=== PATIENT | female | born 1955 | race Caucasian/White ===

== ENCOUNTER → 2017-11-05 | Outpatient (CLI) | payer OTHER ==
[~2017-11-05] MED LIST: GADOBUTROL 7.5 MMOL/7.5 ML PFS ONE
== END | disposition home or self-care (01) ==
LOC: RAD 08:16
PROVIDERS: ATTEND Family Medicine
DX: D25.9 Leiomyoma of uterus, unspecified (principal); R19.09 Other intra-abdominal and pelvic swelling, mass and lump
CPT/HCPCS: 72197; A9585

== ENCOUNTER 2018-02-15 08:50 | Inpatient (IN) | payer OTHER ==
[2018-02-12 10:03] LABS: BASOPHILS # (AUTO) 0.02 x10^3/uL (0-0.1); BASOPHILS % (AUTO) 1 % (0-1); EOSINOPHILS # (AUTO) 0.07 x10^3/uL (0-0.4); EOSINOPHILS % (AUTO) 1 % (1-7); LYMPHOCYTES # (AUTO) 1.37 x10^3/uL (1-3.4); LYMPHOCYTES % (AUTO) 27 % (22-44); MD NO; MEAN CORPUSCULAR HEMOGLOBIN 30.4 pg (27.0-34.8); MEAN CORPUSCULAR HGB CONC 33.6 g/dL (32.4-35.8); MEAN CORPUSCULAR VOLUME 90.3 fL (80-100); MEAN PLATELET VOLUME 8.5 fL (7.4-10.4); MONOCYTES # (AUTO) 0.46 x10^3/uL (0.2-0.8); MONOCYTES % (AUTO) 9 % (2-9); NEUTROPHILS # (AUTO) 3.18 x10^3/uL (1.8-6.8); NEUTROPHILS % (AUTO) 62 % (42-75); PLATELET COUNT 224 x10^3/uL (130-400); RED BLOOD COUNT 5.18 x10^6/uL (3.82-5.3)
[2018-02-12 10:15] LABS: ALBUMIN 4.2 g/dL (3.4-5.0); ANION GAP 8 mmol/L (5-15); CALCIUM 9.3 mg/dL (8.5-10.1); CHLORIDE 101 mmol/L (98-107)
[2018-02-12 10:18] LABS: ALANINE AMINOTRANSFERASE 21 U/L (12-78); ALKALINE PHOSPHATASE 62 U/L (45-117); BILIRUBIN,TOTAL 1.1 mg/dL (0.2-1.0); CREATININE 0.99 mg/dL (0.55-1.02); TOTAL PROTEIN 7.8 g/dL (6.4-8.2)
[2018-02-12 10:20] LABS: INTERNATIONAL NORMALIZED RATIO 1.04 (0.93-1.1); PROTHROMBIN TIME 10.7 Seconds (9.6-11.5)
[~2018-02-15] VITALS: Ht 172.7 cm; Wt 83.9 kg
[~2018-02-15 08:50] MED LIST changes: -GADOBUTROL 7.5 MMOL/7.5 ML PFS ONE; +ROSU20TA PO; +VALS1TAB26 PO
[2018-02-22] MEDS ORDERED: OxyconTIN ER 20 MG TAB.ER PO ONE (14:30)
[2018-02-22] MEDS ORDERED: SCOPOLAMINE PATCH, 1.5MG PATCH.TD72 TD ONE (14:30)
[2018-02-22] MEDS ORDERED: ACETAMINOPHEN 500 MG TABLET PO ONE (14:30)
[2018-02-22] MEDS ORDERED: ONDANSETRON ODT 8 MG PO ONE (14:30)
[2018-02-22] MEDS ORDERED: GABAPENTIN 300 MG CAPSULE PO ONE (14:30)
[2018-02-22] MEDS: LACTATED RINGERS 1,000 ML IV SCH ×2 (14:59→17:13)
[2018-02-22] MEDS ORDERED: FENTANYL PF 250 MCG/5ML ONE (19:56)
[2018-02-22] MEDS ORDERED: MIDAZOLAM 1 MG/ML, 2ML ONE (19:56)
[2018-02-22] MEDS ORDERED: PHENYLEPHRINE 10 MG/ML ONE (19:58)
[2018-02-22] MEDS ORDERED: OXYcodone 5 MG/5 ML ORAL.SOL UDC PO PRN (20:30)
[2018-02-22] MEDS ORDERED: hydrALAzine 20 MG/ML, 1ML IV PRN (20:30)
[2018-02-22] MEDS ORDERED: morphine SULFATE 10 MG/ML, 1ML IV PRN (20:30)
[2018-02-22] MEDS ORDERED: MEPERIDINE/PF 25MG/0.5ML IVPush PRN (20:30)
[2018-02-22] MEDS ORDERED: LORazepam 2 MG/ML, 1ML IVPush PRN (20:30)
[2018-02-22] MEDS ORDERED: LABETALOL 5MG/ML, 20ML IV PRN (20:30)
[2018-02-22] MEDS ORDERED: PROMETHAZINE 25 MG/ML, 1ML IV PRN (20:30)
[2018-02-22] MEDS ORDERED: GLYCOPYRROLATE 0.4 MG/2 ML, 2ML ONE (21:11)
[2018-02-22] MEDS ORDERED: DEXAMETHASONE 4 MG/ML, 1ML ONE (21:13)
[2018-02-22] MEDS ORDERED: ROCURONIUM 10MG/ML,5ML ONE (21:13)
[2018-02-22] MEDS ORDERED: PROPOFOL 10 MG/ML, 20ML ONE (21:13)
[2018-02-22] MEDS ORDERED: CEFOTETAN PMX 1GM/50ML 100 ML ONE (21:13)
[2018-02-22] MEDS: FENTANYL PF 100 MCG/2ML IV PRN ×2 (21:45→22:09)
[2018-02-22] MEDS ORDERED: FENTANYL PF 100 MCG/2ML ONE (21:47)
[2018-02-22] MEDS ORDERED: OXYcodone 5 MG/5 ML ORAL.SOL UDC ONE (21:47)
[2018-02-22] MEDS: D5%-0.45NACL+KCL 20MEQ 1,000 ML IV SCH (22:00)
[2018-02-22] MEDS ORDERED: ONDANSETRON 2MG/ML, 2ML IVPush PRN (22:00)
[2018-02-23 00:40] VITALS: BP 112/57
[2018-02-23] MEDS: OXYcodone/APAP 5/325MG TABLET PO PRN ×2 (03:22→11:43)
[2018-02-23 04:18] VITALS: BP 103/61
[2018-02-23] MEDS: D5%-0.45NACL+KCL 20MEQ 1,000 ML IV SCH (06:00)
[2018-02-23 07:48] VITALS: BP 98/66
[2018-02-23] MEDS ORDERED: morphine SULFATE 10 MG/ML, 1ML IV PRN (08:30)
[2018-02-23] MEDS ORDERED: SODIUM CHLORIDE 0.9% 1,000 ML IV PRN (09:00)
[2018-02-23] MEDS ORDERED: METOCLOPRAMIDE 5 MG/ML, 2ML IV PRN (09:00)
[2018-02-23] MEDS ORDERED: METOCLOPRAMIDE 10MG TABLET PO PRN (09:00)
[2018-02-23 09:08] LABS: BASOPHILS # (AUTO) 0.01 x10^3/uL (0-0.1); BASOPHILS % (AUTO) 0 % (0-1); EOSINOPHILS % (AUTO) 0 % (1-7); LYMPHOCYTES # (AUTO) 0.52 x10^3/uL (1-3.4); LYMPHOCYTES % (AUTO) 6 % (22-44); MD NO; MEAN CORPUSCULAR HEMOGLOBIN 30.4 pg (27.0-34.8); MEAN CORPUSCULAR HGB CONC 33.8 g/dL (32.4-35.8); MEAN CORPUSCULAR VOLUME 89.8 fL (80-100); MEAN PLATELET VOLUME 9.3 fL (7.4-10.4); MONOCYTES # (AUTO) 0.57 x10^3/uL (0.2-0.8); MONOCYTES % (AUTO) 7 % (2-9); NEUTROPHILS # (AUTO) 7.07 x10^3/uL (1.8-6.8); NEUTROPHILS % (AUTO) 87 % (42-75); PLATELET COUNT 222 x10^3/uL (130-400); RED BLOOD COUNT 4.53 x10^6/uL (3.82-5.3); RED CELL DISTRIBUTION WIDTH 12.7 % (9.6-15.2)
[2018-02-23 09:17] LABS: ANION GAP 8 mmol/L (5-15); CALCIUM 8.3 mg/dL (8.5-10.1); CHLORIDE 101 mmol/L (98-107)
[2018-02-23 09:18] LABS: CREATININE 1.29 mg/dL (0.55-1.02)
[2018-02-23 13:25] VITALS: BP 94/57
[2018-02-23 20:00] VITALS: BP 91/58
[2018-02-23] MEDS: KETOROLAC 30 MG/1 ML IVPush PRN (22:01)
[2018-02-24 02:54] VITALS: BP 81/54
[2018-02-24] MEDS: KETOROLAC 30 MG/1 ML IVPush PRN ×4 (04:15→23:01)
[2018-02-24 05:32] LABS: ANION GAP 7 mmol/L (5-15); CALCIUM 8.1 mg/dL (8.5-10.1); CHLORIDE 105 mmol/L (98-107)
[2018-02-24 05:34] LABS: CREATININE 0.97 mg/dL (0.55-1.02)
[2018-02-24 07:50] VITALS: BP 114/65
[2018-02-24] MEDS: OXYcodone/APAP 5/325MG TABLET PO PRN ×3 (09:28→21:36)
[2018-02-24] MEDS: ONDANSETRON 4 MG TABLET PO PRN ×3 (09:29→21:36)
[2018-02-24 12:48] VITALS: BP 101/57
[2018-02-24 20:13] VITALS: BP 101/55
[2018-02-25 03:27] VITALS: BP 102/71
[2018-02-25] MEDS: ONDANSETRON 4 MG TABLET PO PRN ×2 (03:31→09:35)
[2018-02-25] MEDS: OXYcodone/APAP 5/325MG TABLET PO PRN ×2 (03:32→09:34)
[2018-02-25] MEDS: KETOROLAC 30 MG/1 ML IVPush PRN (05:20)
[2018-02-25 08:02] VITALS: BP 94/59
[2018-02-25 12:41] VITALS: BP 112/74
[2018-02-25] MEDS ORDERED: ONDA4TAB7 PO (13:15)
[2018-02-25] MEDS ORDERED: OXYC-302 PO (13:38)
== END 2018-02-25 14:00 | disposition home or self-care (01) | DRG 742 ==
LOC: ORIP 02-22 13:55 → 4NOR 02-22 22:40 → DCLOUNGE 02-25 14:00
PROVIDERS: ADMIT Specialist; ATTEND Specialist
PROC: 0UT90ZZ Resection of Uterus, Open Approach (ICD-10-PCS; 2018-02-22)
PROC: 0UT70ZZ Resection of Bilateral Fallopian Tubes, Open Approach (ICD-10-PCS; 2018-02-22)
PROC: 0UT20ZZ Resection of Bilateral Ovaries, Open Approach (ICD-10-PCS; principal; 2018-02-22 17:00)
DX: D25.9 Leiomyoma of uterus, unspecified (principal); N17.9 Acute kidney failure, unspecified; N80.9 Endometriosis, unspecified; D27.0 Benign neoplasm of right ovary; I10 Essential (primary) hypertension; Q82.0 Hereditary lymphedema
CPT/HCPCS: 36415; 71046; 74018; 80048; 80053; 85025; 85610; 85730; 86850; 86900; 86923; 88112; 88305; 88307; 88331; 93005; J1100; J1885; J2250; J2704; J3010; Q0162; C1765; J2270; J2370; J2765; J7030; J7120; S0074